=== PATIENT | male | born 1985 ===

== ENCOUNTER 2018-01-08 15:57 | Emergency (ER) | payer MEDICAID ==
[2018-01-08 16:15] VITALS: BP 130/85; PULSE 81; RESP 18; TEMP 98.8; O2SAT 100
[2018-01-08] MEDS ORDERED: Albuterol-Ipratrop 3 mg / 0.5 (3 ml) UD INH STA (16:43)
[2018-01-08] MEDS ORDERED: Albuterol-Ipratrop 3 mg / 0.5 (3 ml) UD ONE (16:48)
--- NOTE | 2018-01-08 17:13 | ED PDOC ---
HPI: CCC, URI, Sore Throat Time Seen by Provider: 01/08/18 16:03 Chief Complaint (Nursing): Cough, Cold, Congestion Chief Complaint (Provider): Cough, Cold, Congestion History Per: Patient History/Exam Limitations: no limitations Onset/Duration Of Symptoms: Persistent (x1 month) Current Symptoms Are (Timing): Still Present Additional Complaint(s): 32 year old male presents to ED with complaints of nasal congestion, dry cough, wheezing x 1 month. He reports symptoms are worse at night and has been taking Theraflu/OTC cough medication with minimal relief. Patient has Hx of seasonal allergies in the spring. Denies h/o asthma. Otherwise, he denies any fevers, chills, chest pain, nausea, vomiting, abdominal pain, sore throat, shortness of breath, or any other associated symptoms. PCP: none provided Past Medical History Reviewed: Historical Data, Nursing Documentation, Vital Signs Vital Signs: Last Vital Signs Temp 98.8 F 01/08/18 16:13 Pulse 81 01/08/18 16:13 Resp 18 01/08/18 16:13 BP 130/85 01/08/18 16:13 Pulse Ox 100 01/08/18 16:13 - Medical History PMH: No Chronic Diseases Denies: Asthma - Surgical History Surgical History: No Surg Hx - Family History Family History: States: Unknown Family Hx - Home Medications Home Medications: Ambulatory Orders Medication Instructions Recorded Amoxicillin/Clavulanate [Augmentin 1 tab PO BID #14 tab 12/17/16 875 MG-125 MG] Albuterol HFA [Ventolin HFA 90 2 puff IH Q6H PRN #60 puff 01/08/18 mcg/actuation (8 g)] Benzonatate [Tessalon Perle] 100 mg PO Q8H PRN #21 capsule 01/08/18 Prednisone [Deltasone] 40 mg PO DAILY #8 tablet 01/08/18 - Allergies Allergies/Adverse Reactions: Allergies Allergy/AdvReac Type Severity Reaction Status Date / Time shellfish derived Allergy ANAPHYLAXIS Verified 01/08/18 16:13 Review of Systems ROS Statement: Except As Marked, All Systems Reviewed And Found Negative Constitutional: Negative for: Fever, Chills ENT: Positive for: Nose Congestion. Negative for: Ear Pain, Throat Pain Cardiovascular: Negative for: Chest Pain, Palpitations Respiratory: Positive for: Cough, Wheezing. Negative for: Shortness of Breath, Sputum Gastrointestinal: Negative for: Nausea, Vomiting, Abdominal Pain Musculoskeletal: Negative for: Neck Pain, Back Pain Skin: Negative for: Rash Neurological: Negative for: Weakness, Numbness, Headache, Dizziness Physical Exam - Reviewed Nursing Documentation Reviewed: Yes Vital Signs Reviewed: Yes - Physical Exam Appears: Positive for: Well, Non-toxic, No Acute Distress Head Exam: Positive for: ATRAUMATIC, NORMAL INSPECTION, NORMOCEPHALIC Skin: Positive for: Normal Color, Warm, Dry Eye Exam: Positive for: Normal appearance, EOMI, PERRL ENT: Positive for: Normal ENT Inspection, Pharynx Is (normal), TM Is/Are (nonbulging and nonerythematous). Negative for: Pharyngeal Erythema, Tonsillar Exudate, Tonsillar Swelling Neck: Positive for: Normal, Supple Cardiovascular/Chest: Positive for: Regular Rate, Rhythm, Chest Non Tender Respiratory: Positive for: Wheezing (diffuse bilaterally on expiration). Negative for: Accessory Muscle Use, Rales, Rhonchi, Respiratory Distress Pulses-Radial (L): 2+ Pulses-Radial (R): 2+ Gastrointestinal/Abdominal: Positive for: Normal Exam, Bowel Sounds (normal), Soft. Negative for: Tenderness Back: Positive for: Normal Inspection Extremity: Positive for: Normal ROM, Capillary Refill (<2seconds) Lymphatic: Positive for: Normal Exam Neurologic/Psych: Positive for: Alert, senior engineering manager II-XII (intact), Oriented, Mood/Affect (normal), Gait (steady without assistance). Negative for: Motor/Sensory Deficits - ECG O2 Sat by Pulse Oximetry: 100 (RA) Pulse Ox Interpretation: Normal Nebulizer Treatments/Peak Flow - Duonebs Number of Bronchodilator Doses given?: 1 - Steroid Treatment Steroid: Oral - Clinical Response Clinical Response: Improved Comment: Significantly decreased wheezing bilaterally after nebulizer and steroid Medical Decision Making Medical Decision Making: Time: 1642 Initial Plan: * CXR * Duoneb 3ml INH * Prednisone 60mg PO Time: 1712 --Re-eval of lungs: significant improvement on auscultation s/p nebulizer treatment. Decreased wheezing, improved air flow. Time: 1823 --CXR FINDINGS: LUNGS: No active pulmonary disease. PLEURA: No significant pleural effusion identified. No pneumothorax apparent. CARDIOVASCULAR: No aortic atherosclerotic calcification present. Normal cardiac size. No pulmonary vascular congestion. OSSEOUS STRUCTURES: No significant abnormalities. VISUALIZED UPPER ABDOMEN: Normal. OTHER FINDINGS: None. IMPRESSION: No active disease. Plan of care discussed with patient, and strict instructions given regarding prescriptions, importance of follow up, and signs to return to Emergency Department, to include shortness of breath, chest pain, fevers, chills, or any other new/worsening symptoms. Patient verbalizes understanding of discussion. Patient A&Ox3, ambulating with steady gait, stable for discharge home. Scribe Attestation: Documented by Tianna Zurita, acting as a scribe for She Murguia PA-C. Provider Scribe Attestation: All medical record entries made by the Scribe were at my direction and personally dictated by me. I have reviewed the chart and agree that the record accurately reflects my personal performance of the history, physical exam, medical decision making, and the department course for this patient. I have also personally directed, reviewed, and agree with the discharge instructions and disposition. Disposition - Clinical Impression Clinical Impression: Asthmatic bronchitis, Viral upper respiratory infection Counseled Patient/Family Regarding: Diagnosis, Need For Followup, Rx Given - Disposition Referrals: [facility], located within [facility] [Outside] Disposition: Routine/Home Disposition Time: 18:20 Condition: STABLE Additional Instructions: Take prednisone 2 pills daily for 4 days Take inhaler 2 puffs every 6 hours as needed Take tessalon perle every 8h as needed for cough Increase fluids Followup with primary within 2 days Return to ER for any new/worsening symptoms Prescriptions: Albuterol HFA [Ventolin HFA 90 mcg/actuation (8 g)] 2 puff IH Q6H PRN #60 puff PRN Reason: Cough Benzonatate [Tessalon Perle] 100 mg PO Q8H PRN #21 capsule PRN Reason: Cough Prednisone [Deltasone] 40 mg PO DAILY #8 tablet Instructions: Asthma in Adults, Viral Upper Respiratory Infection, Adult (DC) Forms: [employer] ([place]), [facility] ED School/Work Excuse
--- NOTE | 2018-01-08 18:28 | RAD ---
Date of service: 01/08/2018 HISTORY: r/o PNA COMPARISON: Thigh by none. TECHNIQUE: Chest PA and lateral FINDINGS: LUNGS: No active pulmonary disease. PLEURA: No significant pleural effusion identified. No pneumothorax apparent. CARDIOVASCULAR: No aortic atherosclerotic calcification present. Normal cardiac size. No pulmonary vascular congestion. OSSEOUS STRUCTURES: No significant abnormalities. VISUALIZED UPPER ABDOMEN: Normal. OTHER FINDINGS: None. IMPRESSION: No active disease.
== END 2018-01-08 18:50 | disposition home or self-care (01) ==
LOC: H.ER 15:57
DX: J45.909 Unspecified asthma, uncomplicated (principal); J06.9 Acute upper respiratory infection, unspecified